=== PATIENT | male | born 1990 | race Two or more races ===

== ENCOUNTER 2020-06-06 02:20 | Emergency (ER) | payer SELFPAY ==
[~2020-06-06] VITALS: Ht 185.4 cm; Wt 77.6 kg
--- NOTE | 2020-06-06 02:25 | NUR ---
PT BIBRA C/O ALCOHOL INTOXICATION. PER RA, BS 124 ON SCENE. PT AAOX4. VITAL SIGNS STABLE. RESPIRATIONS EVEN AND UNLABORED. NO ACUTE DISTRESS NOTED AT THIS TIME. PLACED ON MONITOR, WILL CONTINUE TO MONITOR
[2020-06-06] MEDS ORDERED: IBUPROFEN 600 MG TABLET ONE (03:30)
[2020-06-06] MEDS: IBUPROFEN 600 MG TABLET PO ONE (03:31)
--- NOTE | 2020-06-06 04:13 | NUR ---
Patient discharged to home in stable condition. Written and verbal after care instructions given. Patient verbalizes understanding of instruction. Picked up by mother. Pt told to follow up with [facility].
[2020-06-06 05:42] VITALS: BP 131/89
== END 2020-06-06 05:43 | disposition home or self-care (01) ==
LOC: ER 02:24
DX: S82.51XA Displaced fracture of medial malleolus of right tibia, initial encounter for closed fracture (principal); F10.129 Alcohol abuse with intoxication, unspecified; Y90.9 Presence of alcohol in blood, level not specified; X58.XXXA Exposure to other specified factors, initial encounter; Y93.89 Activity, other specified; Y92.89 Other specified places as the place of occurrence of the external cause; Y99.8 Other external cause status
CPT/HCPCS: 73610-TC; 73630-TC